=== PATIENT | female | born 1970 | race Caucasian/White ===

== ENCOUNTER 2018-06-30 08:04 | Day surgery (SDC) | payer OTHER ==
[2018-06-27 12:37] LABS: Absolute Lymphocytes (CBC) 2.4 K/uL (0.7-4.9); Absolute Monocytes 0.5 K/uL (0.1-1.3); Absolute Neutrophil 4.4 K/uL (1.8-8.0); Basophils % 0.5 % (0-1.3); Eosinophils % 2.4 % (0-4.4); Lymphocytes % 32.4 % (15.3-44.8); MCH 33.6 pg (27.0-35.0); MPV 7.2 fL (7.6-11.3); Monocytes % 6.1 % (3.3-12.3)
--- NOTE | 2018-06-27 12:38 | RAD REPORT ---
EXAM DESCRIPTION: RAD - Chest Pa And Lat (2 Views) - 06/27/2018 12:22 pm CLINICAL HISTORY: preop Chest pain. COMPARISON: No comparisons FINDINGS: The lungs are clear. The heart is normal in size. No displaced fractures. IMPRESSION: No acute or concerning finding suspected.
[2018-06-27 12:55] LABS: BUN Blood Urea Nitrogen 16 mg/dL (7-18); Bicarbonate 25 mmol/L (21-32); Glucose Level 87 mg/dL (74-106); Potassium 3.7 mmol/L (3.5-5.1); Sodium Level 141 mmol/L (136-145)
--- NOTE | 2018-06-27 14:26 | EKG ---
Test Date: 2018-06-27 Test Time: 12:27:45 Community Recreation Programmer: JAEL MEASUREMENT RESULTS: Intervals: Rate: 72 DE: 178 QRSD: 96 QT: 408 QTc: 446 Webb: P: 38 DE: 178 QRS: -5 T: -2 INTERPRETIVE STATEMENTS: Normal sinus rhythm Normal ECG No previous ECG available for comparison Electronically Signed On 06-27-18 14:25:46 CDT by Mario Melo
[2018-06-30 08:59] LABS: Specific Gravity 1.025 (1.005-1.030)
[2018-06-30] MEDS ORDERED: CEFAZOLIN/SWI 1gm 1 GM/10 ML SYR ONE (09:08)
[2018-06-30] MEDS ORDERED: Ringers Lactate 1,000 ML IV ONE ×2 (09:08→11:42)
[2018-06-30] MEDS ORDERED: MIDAZOLAM HCL 2 MG/2 ML INJ ONE (10:04)
[2018-06-30] MEDS ORDERED: ROCURONIUM 50 MG/5 ML VIAL IV ONE (10:35)
[2018-06-30] MEDS ORDERED: ONDANSETRON 4 MG/2 ML VIAL ONE (10:35)
[2018-06-30] MEDS ORDERED: PROPOFOL 200 MG/20 ML VIAL IV ONE (10:35)
[2018-06-30] MEDS ORDERED: FENTANYL CITR 100 MCG/2 ML ONE (10:35)
[2018-06-30] MEDS ORDERED: LIDOCAINE 1% MPF 2 ML AMPULE ONE (10:35)
[2018-06-30] MEDS ORDERED: DEXAMETHASONE 10 MG/ML VIAL ONE (10:35)
[2018-06-30] MEDS ORDERED: GLYCOPYRROLATE 0.2 MG/ML SYR ONE (11:11)
[2018-06-30] MEDS ORDERED: NEOSTIGMINE 1 MG/ML -5 ML SYRINGE ONE (11:11)
[2018-06-30] MEDS: MEPERIDINE HCL 50 MG/ML AMP ONE ×4 (11:20→11:42)
--- NOTE | 2018-06-30 11:27 | P.BOP ---
Preoperative diagnosis: RLQ abd pain, Postoperative diagnosis: Appendicitis, right ovarian cyst, redundant transverse colon Primary procedure: Diagnostic laparoscopy, Laparoscopic appendectomy Executive Advisor: Fidelina Rogers (CONTACT LENS BLOCKER AND CUTTER) Estimated blood loss: <10cc Specimen: rosa Findings: see dictaction Anesthesia: General Complications: None Transferred to: Recovery Room Condition: Good
[2018-06-30] MEDS ORDERED: CODEINE 30MG/APAP 300MG TAB ONE (12:59)
[2018-07-01 14:29] VITALS: BP 135/77; TEMP 97.3; O2SAT 97
--- NOTE | 2018-07-01 23:04 | OP ---
Date of Procedure: 07/01/2018 Surgeon: Gabino Castanon MD Steam Locomotive Firer/Fireman: JULIANA Barragan. Preoperative Diagnosis: Right lower quadrant pain. Postoperative Diagnoses: Right lower quadrant pain with appendicitis, right ovarian cyst, redundant transverse colon. Procedure: Diagnostic laparoscopy, laparoscopic appendectomy. Specimen: Appendix. Findings: Patient has redundant transverse colon that goes all the way down to pelvis, goes adjacent and over the ascending colon, goes into the hepatic flexure, and goes back into the ascending colon with the ascending colon and appendix seems to be in the right place. That probably may give impress ion of the cecum moving to the middle since the part of the transverse colon overlapped the mirror im age anteriorly with the ascending colon. The appendix looks dilated, asymmetrical in shape and color , and for that reason diagnosed with appendicitis and appendix was removed. Indications: This is a 47-year-old patient, who comes to us with abdominal pain on and off in right lower quadrant, etiology of that is unknown. Some CAT scan findings were discussed with a GI doctor and the patient that it triggers a diagnostic laparoscopy and possible appendectomy with benefits, al ternatives, and risks which include but are not limited to infection, bleeding, damage to adjacent st ructures, anesthesia complication, recurrence, KS, and even . She also understands this may not relieve any symptoms, this might need more than one surgical intervention, this is a diagnostic proc edure, we might not find the etiology of her pain. She signed a consent. 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 Description Of Procedure: The patient was brought to the operating room, placed in supine position. Anesthesia was done without complication. Abdominal area was prepped and draped in usual sterile fa shion. Marcaine 0.5% injected for local anesthetic, followed by sharp incision of the skin in the in fraumbilical region. Incision was carried down to the fascia which was opened. Under direct vision, Vicryl #1 was placed over the fascia. Mike trocar was carefully introduced. No bleeding was obta ined. I placed two more trocars, 5 mm each one of them, in the left lower quadrant and suprapubic ar ea under direct visualization. Then, we proceeded to do the diagnostic laparoscopy. Curiously, we n oticed the findings that we discussed above within transverse colon and this is how it goes. The pat ient has appendix right in the right place which is in the right lower quadrant, right near the later al wall of the abdomen. The ascending colon gums up along the edge of the flank, going to the hepati c flexure, but then transverse colon loops and comes down all the way down on top of the ascending co freddy. It goes all the way down to pelvis, curves back into the mid transverse area, and then actually go into the splenic flexure and then descending colon, looks okay. A little bit redundant sigmoid b ut none is defined as the transverse colon. That gave the appearance of a cecum to be on the middle with the cecum really is on the right side. Appendix looks asymmetrical in shape and color. I canno t tell it is not abnormal as it looks abnormal on the visualization; for that reason, this will be re moved. In the area of the liver, gallbladder, and stomach, we did not see any major abnormalities in that region. The area of the pelvis shows an ovarian cyst translucent on the right side, no leakage . No hernia is seen and small bowel with no obvious abnormalities there. At that moment, I proceede d to create a window in the base of the appendix, transected that with an Endo XIOMARA 45 mm 3.5 and the mesoappendix with an Endo XIOMARA 45 mm 2.5 with further hemostasis obtained clear. The area was irrigat ed. No bleeding. No bowel leak. Appendix removed from the abdominal cavity using an EndoCatch thro ugh the umbilical incision. The area was inspected once again. The bowel was not twisted, looks to be nicely in place. I am going to discuss this with the patient when she wakes up and see what other alternative that we have. The trocars were removed under direct vision. Deflated pneumoperitoneum. Closed the fascia with #1 Vicryl. Irrigated the subcutaneous tissue, closed the skin with 3-0 Client Support Administrator elton and Steri-Strips placed on top. The patient tolerated the procedure well. The patient was sent to recovery room in stable condition. The was explained the options that we have right now. We may have to address the issue of a redundant transverse colon since it is impossible for me at th is moment to say that it will not kink in the future. That will be discussed when the patient is awake since any surgical intervention to get that may require allison sheets. She understood that. /MELISSA Voice ID: [id number] Report ID: [id number]
--- NOTE | 2018-07-01 23:09 | DS ---
Date of Discharge: 06/30/2018 Diagnoses: Right lower quadrant pain, appendicitis, right ovarian cyst, redundant transverse colon. Procedures: Diagnostic laparoscopy, laparoscopic appendectomy. Disposition: Home. Activity: As tolerated. No heavy lifting. Followup: Follow up in my office in 1 week. Call for appointment on [phone]. Discharge Instructions: Keep the area dry for 48 hours, then may shower. Keep the Steri-Strips inta ct. SAMEER/MELISSA Voice ID: [id number] Report ID: [id number]
== END 2018-06-30 13:44 | disposition home or self-care (01) ==
LOC: OR 08:04
PROVIDERS: ATTEND Surgery
PROC: 0DTJ4ZZ Resection of Appendix, Percutaneous Endoscopic Approach (ICD-10-PCS; principal; 2018-06-30 10:45)
DX: K37 Unspecified appendicitis (principal); N83.201 Unspecified ovarian cyst, right side; Q43.8 Other specified congenital malformations of intestine
CPT/HCPCS: 36415; 71046; 80048; 81025; 85025; 88304; 93005; J0690; J1100; J2001; J2175; J2250; J2405; J2710; J3010

== ENCOUNTER 2024-09-29 03:19 | Emergency (ER) | payer BC ==
[2024-09-29] MEDS ORDERED: ONDANSETRON 4 MG/2 ML VIAL ONE (03:51)
[2024-09-29] MEDS ORDERED: dilTIAZem HCL 25 MG/5 ML VIAL IV ONE (03:52)
[2024-09-29] MEDS ORDERED: NA CHLORIDE 0.9% 1,000 ML ONE ×2 (03:52→05:26)
[2024-09-29 04:13] LABS: Specific Gravity 1.026 (1.005-1.030); Sqamous Epithelial <5 /HPF (None Seen); Urine Bacteria None Seen /HPF (<20); Urine Bilirubin NEGATIVE (Negative); Urine Blood Negative (Negative); Urine Clarity Turbid (Clear); Urine Color Light-Yellow (Yellow); Urine Culture Reflex Order NOT NEEDED; Urine Glucose NEGATIVE (Negative); Urine Ketones NEGATIVE (Negative); Urine Micro Reflex YN NO BILL MICROSCOPIC; Urine Mucus Slight /HPF (None Seen); Urine Nitrite NEGATIVE (Negative); Urine Protein TRACE (Negative); Urine RBC <5 /HPF (None Seen); Urine Urobilinogen Normal (Normal); Urine WBC <5 /HPF (<5); Urine pH 8.5 (5.0-7.0)
[2024-09-29 04:15] LABS: Albumin 4.2 g/dL (3.4-5.0); Albumin/Globulin Ratio 1.1 (1.1-1.8); Anion Gap 10.2 mEq/L (5.0-15.0); Bilirubin Direct 0.2 mg/dL (0-0.2); Bilirubin Indirect, Calculated 0.7 mg/dL (0.2-0.8); Bilirubin Total 0.9 mg/dL (0.2-1.0); Globulin 3.8 g/dL (2.3-3.5); Potassium 3.2 mEq/L (3.5-5.1); Thyroid Stimulating Hormone 0.092 uIU/mL (0.358-3.740); Troponin High Sensitivity 3.9 pg/mL (<58.9)
[2024-09-29 04:16] LABS: Absolute Eosinophils 0.1 K/uL (0-0.5); Absolute Monocytes 0.6 K/uL (0.1-1.3); Absolute Neutrophil 7.6 K/uL (1.8-8.0); Basophils % 0.2 % (0-1.3); Eosinophils % 1.5 % (0-4.4); Hematocrit 42.9 % (36.0-45.0); Lymphocytes % 10.7 % (15.3-44.8); MCH 31.4 pg (27.0-35.0); MCHC 35.1 g/dL (32.0-36.0); MCV 89.6 fL (80-100); Monocytes % 6.3 % (3.3-12.3); Neutrophils % 81.3 % (41.7-73.7); Platelets 253 thou/uL (152-406); RBC Red Blood Cell Count 4.79 M/uL (3.86-4.86); Red Cell Distribution Width 13.1 % (12.1-15.2)
[2024-09-29 04:26] LABS: SARS-CoV-2 Antigen CONTROL BLUE LINE VIS/BG OK; SARS-CoV-2 Antigen Rapid Res Negative (Negative)
[2024-09-29] MEDS ORDERED: POTASSIUM CL SA 10 MEQ TAB PO ONE (04:37)
[2024-09-29] MEDS ORDERED: KCL 20 MEQ/100 mL IVPB 100 ML IV ONE (04:38)
[2024-09-29] MEDS ORDERED: NA CHLORIDE 0.9% 250 ML ONE (04:38)
[2024-09-29] MEDS ORDERED: MAGNESIUM SULFATE 1 gm IVPB 2 GM/200 ML BAG IV ONE (04:39)
--- NOTE | 2024-09-29 06:31 | RAD REPORT ---
EXAM DESCRIPTION: Chest Single View CLINICAL HISTORY: COUGH COMPARISON: None TECHNIQUE: Single AP view of the chest. FINDINGS: Lung volumes adequate. Cardiac silhouette is normal in size. No pneumothorax. No large pleural effusion. No focal consolidation. No acute bony finding. IMPRESSION: No evidence of acute cardiopulmonary disease. Electronically signed by: Adriano Paredes MD 09/29/2024 06:26 AM TICKET ATTENDANT Z9 Due to temporary technical issues with the PACS/Lumoid reporting system, reports are being janae d by the in-house radiologist without review as a courtesy to ensure prompt reporting the interpreting radiologist is fully responsible for the content of the report. Transcribed Date/Time: 09/29/2024 6:31 AM
--- NOTE | 2024-09-29 06:56 | EDPHYS ---
Physician Documentation [facility] Name: Michelle Marquez Age: 54 yrs Sex: Female : 1970 Arrival Date: 09/29/2024 Time: 03:19 Bed 3 Private MD: ED Physician Tee Nelson HPI: 09/29 03:35 This 54 yrs old Female presents to ER via Unassigned with complaints of ec2 Nausea/Vomiting/Diarrhea, Palpitations. 03:35 Patient arrives today for evaluation of nausea and vomiting as well as palpitations. ec2 States that she has been having some bouts of nausea and vomiting along with diarrhea. Patient reports that she noted that her watch told her that she is in atrial fibrillation and wanted to be evaluated. Reports no chest pain or shortness of breath. History of thyroid cancer status post thyroidectomy and is on thyroid supplementation.. Historical: - Allergies: 03:37 No Known Allergies; ha1 - PMHx: 03:37 Hypertensive disorder; thyroid cancer; ha1 - PSHx: 03:37 Thyroidectomy; Appendectomy; ha1 - Immunization history:: Adult Immunizations up to date, Client reports receiving the 2nd dose of the Covid vaccine, Last tetanus immunization: < 10 years ago Flu vaccine is up to date. - Infectious Disease History:: Denies. - Social history:: Smoking status: Patient denies any tobacco usage or history of. ROS: 03:35 Constitutional: as per hpi ec2 Exam: 03:35 Constitutional: GEN: NAD Head: atraumatic Eyes: EOMI Ears: External ears are ec2 normal. CV: tachycardia, irregular rhythm LUNGS: no respiratory distress ABD: non-distended, soft, nontender, not guarding, not rigid SKIN: no evidence of rashes MSK: no evidence of trauma Vital Signs: 03:25 BP 160 / 95; Pulse 119; Resp 20 S; Temp 98.6; Pulse Ox 100% on R/A; Weight 94.35 kg; ha1 Height 5 ft. 9 in. ; 04:09 BP 140 / 98; Pulse 85; Resp 17 S; Pulse Ox 99% on R/A; Pain 0/10; br2 04:48 BP 140 / 98; Pulse 78; Resp 18; Pulse Ox 100% on R/A; br2 06:35 BP 138 / 88; Pulse 77; Resp 17; Pulse Ox 99% ; br2 07:10 BP 142 / 93; Pulse 66; Resp 16; Pulse Ox 99% on R/A; db 03:25 Body Mass Index 30.72 (94.35 kg, 175.26 cm) ha1 04:09 Pain Scale: Adult br2 MDM: 03:27 Medical Screening Exam initiated ec2 03:35 Data reviewed: vital signs, nurses notes. ED course: Patient arrives today for ec2 evaluation of nausea and vomiting along with palpitation. Examination yields irregular rhythm with tachycardia. EKG obtained, independently reviewed and interpreted by me, shows atrial fibrillation with a rate of 123, no acute ST segment elevations, intervals are nonactionable. Will obtain lab work, treat the patient's symptoms. Differential includes electrolyte disturbances, anemia, dehydration, arrhythmia. 04:28 ED course: Metabolic profile shows slight hypokalemia with potassium of 3.2. TSH ec2 appropriately low. Urine is noninfectious appearing. LFTs unremarkable. Free T4 within appropriate ranges. Troponin within normal ranges. Flu testing negative. Will supplement potassium given the patient's A-fib.. 04:53 ED course: Repeat EKG independently reviewed and interpreted by me, shows atrial ec2 fibrillation, rate of 83, no acute ST segment elevations, intervals are nonactionable.. 05:31 ED course: On reassessment patient remains in A-fib with heart rates in the 80s and ec2 90s. I discussed possible anticoagulation with the patient given the patient's [id number] score of 2, patient declined, we will instead start the patient on full dose of aspirin and she will follow-up with cardiology and Dr. Smith for further management of her A-fib. Patient expressed understanding regarding the risks and benefits regarding anticoagulation.. 06:01 ED course: Chest x-ray independently reviewed and interpreted by me, shows no acute ec2 intrathoracic process.. 06:20 ED course: Slowed down in the potassium given irritation during infusion. Ultimately I ec2 feel patient is a appropriate candidate for discharge with close follow-up with PCP and cardiology. Patient is otherwise young individual, I have a low suspicion for process such as PE or UT. Patient is rate controlled. Patient is otherwise well-managed on her blood pressure. Patient is an appropriate candidate to follow-up outpatient.. 09/29 03:35 Order name: Basic Metabolic Panel; Complete Time: 04:27 09/29 03:35 Order name: CBC with Diff 09/29 03:35 Order name: Troponin HS; Complete Time: 04:27 09/29 03:35 Order name: TSH; Complete Time: 04:27 09/29 03:35 Order name: T4 Free; Complete Time: 04:27 09/29 03:35 Order name: Lipase; Complete Time: 04:27 09/29 03:35 Order name: Influenza Screen (a \T\ B); Complete Time: 04:27 09/29 03:35 Order name: SARS RAPID; Complete Time: 06:35 09/29 03:35 Order name: UAM; Complete Time: 04:27 09/29 03:35 Order name: LFT's; Complete Time: 04:27 09/29 03:35 Order name: XRAY Chest (1 view) 2 09/29 03:35 Order name: Cardiac monitoring; Complete Time: 04:03 09/29 03:35 Order name: EKG - Nurse/Tech; Complete Time: 04:03 09/29 03:35 Order name: IV Saline Lock; Complete Time: 04:03 09/29 03:35 Order name: Labs collected and sent; Complete Time: 04:03 09/29 03:35 Order name: O2 Per Protocol; Complete Time: 04:03 09/29 03:35 Order name: O2 Sat Monitoring; Complete Time: 04:03 09/29 04:15 Order name: EKG - Nurse/Tech; Complete Time: 04:46 ec2 Administered Medications: 04:03 Drug: NS 0.9% IV 1000 ml IV at 1000 ml once; to be given as a bolus over 60 minutes br2 Route: IV; Rate: 1000 ml; Site: right antecubital; 05:00 Follow up: Response: No adverse reaction; IV Status: Completed infusion; IV Intake: br2 1000ml 04:03 Drug: Ondansetron IVP 4 mg IVP once; over 2 minutes Route: IVP; Site: right antecubital;br2 04:30 Follow up: Response: No adverse reaction br2 04:03 Drug: Diltiazem IVP 10 mg IVP once; Over 2 minutes Route: IVP; Site: right antecubital; br2 04:30 Follow up: Response: No adverse reaction br2 04:46 Drug: NS 0.9% IV 250 ml IV at bolus once; to be given as a bolus over 30 minutes Route: jj7 IV; Rate: bolus; Site: right antecubital; 05:15 Follow up: Response: No adverse reaction; IV Status: Completed infusion; IV Intake: br2 250ml 04:47 Drug: Magnesium Sulfate IVPB 2 grams IVPB once over 30 mins Route: IVPB; Infused Over: jj7 30 mins; Site: right antecubital; 05:21 Follow up: Response: No adverse reaction; IV Status: Completed infusion; IV Intake: br2 200ml 04:47 Drug: Potassium Chloride PO 40 mEq PO once Route: PO; br2 05:30 Follow up: Response: No adverse reaction br2 05:21 Drug: Potassium Chloride IV 20 mEq IV at calculated rate once; administer over 1-2 br2 hours Route: IV; Rate: calculated rate; Site: right antecubital; 07:15 Follow up: Response: No adverse reaction; IV Status: Completed infusion; IV Intake: db 100ml 06:19 Drug: NS 0.9% IV 1000 ml IV at 125 ml/hr Per protocol Route: IV; Rate: 500 ml/hr; Site: br2 right antecubital; 07:16 Follow up: Response: No adverse reaction; IV Status: Completed infusion db Disposition Summary: 09/29/24 06:56 Discharge Ordered Condition: Stable ec2 Diagnosis - Persistent atrial fibrillation ec2 - Hypokalemia ec2 Followup: ec2 - With: Bruno Rincon MD - When: - Reason: Recheck today's complaints Followup: ec2 - With: Rodolfo Smith MD - When: - Reason: Recheck today's complaints Discharge Instructions: - Discharge Summary Sheet ec2 - Atrial Fibrillation ec2 Forms: - Medication Reconciliation Form ec2 - Antibiotic Education ec2 - Prescription Opioid Use ec2 - Patient Portal Instructions ec2 - Leadership Thank You Letter ec2 Prescriptions: - aspirin 325 mg Oral tablet - take 1 tablet ORAL route daily; 30 tablet; Refills: 0, Product Selection ec2 Permitted Critical care time excluding procedures: 05:32 Critical care time: Bedside Care: 30 minutes. Total time: 30 minutes ec2 Signatures: Dispatcher [employer] EDMS Isabelle Crowley, RN RN ha1 An June RN RN jj7 Tee Nelson MD MD ec2 Teresa Zaldivar RN RN br2 Mulu Hobson RN db Corrections: (The following items were deleted from the chart) 03:36 03:36 BASIC METABOLIC PANEL+C.LAB.BRZ ordered. EDMS EDMS 03:36 03:36 CBC+H.LAB.BRZ ordered. EDMS EDMS 03:36 03:36 Troponin High Sensitivity+C.LAB.BRZ ordered. EDMS EDMS 03:36 03:36 THYROID STIMULAT HORMONE+C.LAB.BRZ ordered. EDMS EDMS 03:36 03:36 T4 FREE+C.LAB.BRZ ordered. EDMS EDMS 03:36 03:36 LIPASE+C.LAB.BRZ ordered. EDMS EDMS 03:36 03:36 Influenza Screen (A \T\ B)+BA.LAB.BRZ ordered. EDMS EDMS 03:36 03:36 SARS-COV-2 Antigen Rapid+I.LAB.BRZ ordered. EDMS EDMS 03:36 03:36 Urinalysis W/Microscopic+U.LAB.BRZ ordered. EDMS EDMS 03:36 03:36 Chest Single View+RAD.RAD.BRZ ordered. EDMS EDMS 03:36 03:36 HEPATIC FUNCTION+C.LAB.BRZ ordered. EDMS EDMS
--- NOTE | 2024-09-29 06:56 | ER ---
Nurse's Notes [facility] Name: Michelle Marquez Age: 54 yrs Sex: Female : 1970 Arrival Date: 09/29/2024 Time: 03:19 Bed 3 Private MD: Diagnosis: Persistent atrial fibrillation;Hypokalemia Presentation: 09/29 03:25 Chief complaint: Patient states: nausea, vomiting, diarrhea, chest palpitations. atrial ha1 fibrillation reading at home. 03:25 Coronavirus screen: Vaccine status: Patient reports receiving the 2nd dose of the covid ha1 vaccine. Solavei and FlowJob. Ebola Screen: No symptoms or risks identified at this time. Initial Sepsis Screen: Does the patient meet any 2 criteria? No. Patient's initial sepsis screen is negative. Does the patient have a suspected source of infection? No. Patient's initial sepsis screen is negative. Risk Assessment: Do you want to hurt yourself or someone else? Patient reports no desire to harm self or others. Onset of symptoms was September 29, 2024. 03:25 Method Of Arrival: Ambulatory ha1 03:25 Acuity: LEATHA 2 ha1 Triage Assessment: 03:37 General: Appears uncomfortable, Behavior is cooperative. Pain: Complains of pain in ha1 chest palpitations. Neuro: Level of Consciousness is awake, alert, obeys commands, Oriented to person, place, time, situation. Cardiovascular: Capillary refill < 3 seconds Patient's skin is warm and dry. Cardiovascular: Reports fatigue, nausea, palpitations. Respiratory: Airway is patent Respiratory effort is even, unlabored, Respiratory pattern is regular, symmetrical. GI: Abdomen is round non-distended, Reports diarrhea, nausea, vomiting. Derm: Skin is pink, warm \T\ dry. Musculoskeletal: Circulation, motion, and sensation intact. Range of motion: intact in all extremities. Historical: - Allergies: 03:37 No Known Allergies; ha1 - PMHx: 03:37 Hypertensive disorder; thyroid cancer; ha1 - PSHx: 03:37 Thyroidectomy; Appendectomy; ha1 - Immunization history:: Adult Immunizations up to date, Client reports receiving the 2nd dose of the Covid vaccine, Last tetanus immunization: < 10 years ago Flu vaccine is up to date. - Infectious Disease History:: Denies. - Social history:: Smoking status: Patient denies any tobacco usage or history of. Screenin:41 [facility] ED Fall Risk Assessment (Adult) History of falling in the last 3 months, ha1 including since admission No falls in past 3 months (0 pts) Confusion or Disorientation No (0 pts) Intoxicated or Sedated No (0 pts) Impaired Gait No (0 pts) Mobility Assist Device Used No (0 pt) Altered Elimination No (0 pt) Score/Fall Risk Level 0 - 2 = Low Risk Oriented to surroundings, Maintained a safe environment, Educated pt \T\ family on fall prevention, incl call for assistance when getting out of bed, Hourly rounding (assess needs \T\ fall precautionary measures) done. Abuse screen: Denies threats or abuse. Denies injuries from another. Nutritional screening: No deficits noted. Tuberculosis screening: No symptoms or risk factors identified. Assessment: 03:30 Reassessment: Patient and/or family updated on plan of care and expected duration. Pain br2 level reassessed. Patient is alert, oriented x 3, equal unlabored respirations, skin warm/dry/pink. General: Appears in no apparent distress. uncomfortable, Behavior is calm, cooperative. Pain: Denies pain. Neuro: Benavidez Agitation-Sedation Scale (RASS): 0 - Alert and Calm Level of Consciousness is awake, alert, obeys commands, Oriented to person, place, time, situation. Cardiovascular: Reports nausea, palpitations, vomiting, Denies chest pain, Capillary refill < 3 seconds Rhythm is atrial fibrillation. Respiratory: Airway is patent Respiratory effort is even, unlabored, Respiratory pattern is regular, symmetrical. GI: Reports diarrhea, nausea, vomiting. GI: Reports. : No signs and/or symptoms were reported regarding the genitourinary system. EENT: No signs and/or symptoms were reported regarding the EENT system. 03:30 Derm: No signs and/or symptoms reported regarding the dermatologic system. br2 Musculoskeletal: Capillary refill < 3 seconds, Range of motion: intact in all extremities. 04:48 Reassessment: Patient and/or family updated on plan of care and expected duration. Pain br2 level reassessed. Patient is alert, oriented x 3, equal unlabored respirations, skin warm/dry/pink. Patient states feeling better. Patient states symptoms have improved. 05:19 Reassessment: Patient and/or family updated on plan of care and expected duration. Pain br2 level reassessed. Patient is alert, oriented x 3, equal unlabored respirations, skin warm/dry/pink. Patient states feeling better. Patient states symptoms have improved. 07:40 Reassessment: Patient appears in no apparent distress at this time. Patient and/or db family updated on plan of care and expected duration. Pain level reassessed. Patient is alert, oriented x 3, equal unlabored respirations, skin warm/dry/pink. GI: Abdomen is. Vital Signs: 03:25 BP 160 / 95; Pulse 119; Resp 20 S; Temp 98.6; Pulse Ox 100% on R/A; Weight 94.35 kg; ha1 Height 5 ft. 9 in. ; 04:09 BP 140 / 98; Pulse 85; Resp 17 S; Pulse Ox 99% on R/A; Pain 0/10; br2 04:48 BP 140 / 98; Pulse 78; Resp 18; Pulse Ox 100% on R/A; br2 06:35 BP 138 / 88; Pulse 77; Resp 17; Pulse Ox 99% ; br2 07:10 BP 142 / 93; Pulse 66; Resp 16; Pulse Ox 99% on R/A; db 03:25 Body Mass Index 30.72 (94.35 kg, 175.26 cm) ha1 04:09 Pain Scale: Adult br2 ED Course: 03:25 Patient arrived in ED. gm2 03:27 Tee Nelson MD is Attending Physician. ec2 03:27 Patient has correct armband on for positive identification. Placed in gown. Bed in low ha1 position. Call light in reach. Side rails up X 1. Adult w/ patient. 03:27 Provided Education on: plan of care . ha1 03:35 Inserted saline lock: 20 gauge in right antecubital area, using aseptic technique. br2 Blood collected. Flushed with 10 mL NS. 03:37 Triage completed. ha1 04:03 LFT's Sent. br2 04:03 SARS RAPID Sent. br2 04:03 Influenza Screen (a \T\ B) Sent. br2 04:03 Lipase Sent. br2 04:03 T4 Free Sent. br2 04:03 TSH Sent. br2 04:04 Teresa Zaldivar RN is Primary Nurse. br2 04:04 Basic Metabolic Panel Sent. br2 04:04 CBC with Diff Sent. br2 04:04 Troponin HS Sent. br2 06:24 XRAY Chest (1 view) In Process Unspecified. EDMS 06:56 Bruno Rincon MD is Referral Physician. ec2 06:56 Rodolfo Smith MD is Referral Physician. ec2 07:05 No provider procedures requiring assistance completed. db 07:05 Client placed on continuous cardiac and pulse oximetry monitoring. NIBP monitoring db applied. ekg monitor tech on. Pulse ox on. NIBP on. Pillow given. 07:35 IV discontinued, intact, bleeding controlled, No redness/swelling at site. db Administered Medications: 04:03 Drug: NS 0.9% IV 1000 ml IV at 1000 ml once; to be given as a bolus over 60 minutes br2 Route: IV; Rate: 1000 ml; Site: right antecubital; 05:00 Follow up: Response: No adverse reaction; IV Status: Completed infusion; IV Intake: br2 1000ml 04:03 Drug: Ondansetron IVP 4 mg IVP once; over 2 minutes Route: IVP; Site: right antecubital;br2 04:30 Follow up: Response: No adverse reaction br2 04:03 Drug: Diltiazem IVP 10 mg IVP once; Over 2 minutes Route: IVP; Site: right antecubital; br2 04:30 Follow up: Response: No adverse reaction br2 04:46 Drug: NS 0.9% IV 250 ml IV at bolus once; to be given as a bolus over 30 minutes Route: jj7 IV; Rate: bolus; Site: right antecubital; 05:15 Follow up: Response: No adverse reaction; IV Status: Completed infusion; IV Intake: br2 250ml 04:47 Drug: Magnesium Sulfate IVPB 2 grams IVPB once over 30 mins Route: IVPB; Infused Over: jj7 30 mins; Site: right antecubital; 05:21 Follow up: Response: No adverse reaction; IV Status: Completed infusion; IV Intake: br2 200ml 04:47 Drug: Potassium Chloride PO 40 mEq PO once Route: PO; br2 05:30 Follow up: Response: No adverse reaction br2 05:21 Drug: Potassium Chloride IV 20 mEq IV at calculated rate once; administer over 1-2 br2 hours Route: IV; Rate: calculated rate; Site: right antecubital; 07:15 Follow up: Response: No adverse reaction; IV Status: Completed infusion; IV Intake: db 100ml 06:19 Drug: NS 0.9% IV 1000 ml IV at 125 ml/hr Per protocol Route: IV; Rate: 500 ml/hr; Site: br2 right antecubital; 07:16 Follow up: Response: No adverse reaction; IV Status: Completed infusion db Medication: 03:44 VIS not applicable for this client. ha1 Intake: 05:00 IV: 1000ml; Total: 1000ml. br2 05:15 IV: 250ml; Total: 1250ml. br2 05:21 IV: 200ml; Total: 1450ml. br2 07:15 IV: 100ml; Total: 1550ml. db Outcome: 06:56 Discharge ordered by . ec2 07:35 Discharged to home ambulatory, db 07:35 Condition: stable 07:35 Discharge instructions given to patient, Instructed on discharge instructions, follow up and referral plans. Prescriptions given X 1, 07:41 Patient left the ED. db Signatures: Dispatcher [employer] Isabelle Savage RN RN ha1 An June RN RN jjMulu Juarez RN RN db Tee Nelson MD MD ec2 Roselyn Hughes Teresa Zaman RN RN br2
--- NOTE | 2024-10-01 12:00 | EKG ---
Test Date: 2024-09-29 Test Time: 04:50:44 Development Associate: CARLENE MEASUREMENT RESULTS: Intervals: Rate: 83 [place]: QRSD: 92 QT: 394 QTc: 462 [place]: P: WI: QRS: 2 T: 9 INTERPRETIVE STATEMENTS: Atrial fibrillation Prolonged QT Abnormal ECG Compared to ECG 09/29/2024 03:29:44 Prolonged QT interval now present Left-axis deviation no longer present ST (T wave) deviation no longer present Electronically Signed On 10-01-24 11:57:54 DIAMOND SANDER by Jeffery Quiñones
--- NOTE | 2024-10-01 12:00 | EKG ---
Test Date: 2024-09-29 Test Time: 03:29:44 [employer] Dispatcher: CARLENE MEASUREMENT RESULTS: Intervals: Rate: 123 [place]: QRSD: 88 QT: 338 QTc: 483 [place]: P: GA: QRS: -36 T: 60 INTERPRETIVE STATEMENTS: Atrial fibrillation Left axis deviation Nonspecific ST and T wave abnormality, probably digitalis effect Abnormal ECG Compared to ECG 06/27/2018 12:27:45 Left-axis deviation now present ST (T wave) deviation now present Sinus rhythm no longer present Electronically Signed On 10-01-24 11:58:24 LOW [employer] DEFENSE OFFICER by Jeffery Quiñones
[2024-10-02 01:07] VITALS: BP 142/93; TEMP 98.6; O2SAT 99
== END 2024-09-29 07:41 | disposition home or self-care (01) ==
LOC: ER 03:19
DX: I48.19 Other persistent atrial fibrillation (principal); E87.6 Hypokalemia; I10 Essential (primary) hypertension; Z11.52 Encounter for screening for COVID-19
CPT/HCPCS: 96365; 96367; 96361; 93005 ×2; 85025; 81001; 80048; 36415; 80076; 84443; 84484; 84439; 83690; 87804 ×2; 71045; 96375; 99285; 87811; J3480; J3475; J2405; J7050; J7030 ×2

== ENCOUNTER 2024-09-29 10:33 | Inpatient (IN) | payer BC ==
[2024-09-29] MEDS: SOTALOL HCL 80 MG TAB PO SCH (10:00)
--- NOTE | 2024-09-29 11:25 | ER ---
Nurse's Notes [facility] Name: Michelle Marquez Age: 54 yrs Sex: Female : 1970 Arrival Date: 09/29/2024 Time: 10:33 Bed [address] [facility] MD: Diagnosis: Nausea;Unspecified atrial fibrillation ED Course: 09/29 10:43 Patient arrived in ED. cm10 11:23 Rodolfo Smith MD is Hospitalizing Provider. bc6 12:31 Rodolfo Smith MD is Attending Physician. kc6 Administered Medications: No medications were administered Outcome: 11:24 Decision to Hospitalize by Provider. bc6 12:31 Patient left the ED. kc6 Signatures: Page Mcgovern RN RN kc6 Melly Levin bc6 Ashley Castanon RN RN cm10
[2024-09-29] MEDS ORDERED: LOPERAMIDE HCL 2 MG CAPSULE PO PRN (11:31)
[2024-09-29] MEDS ORDERED: DIPHENHYDRAMINE 25 MG TAB/CAP PO PRN (11:31)
[2024-09-29] MEDS ORDERED: SODIUM CHLORIDE 0.9% 10ML INJ IV PRN (11:31)
[2024-09-29] MEDS ORDERED: ONDANSETRON 4 MG (ODT) TAB PO PRN (11:31)
[2024-09-29] MEDS ORDERED: POLYETHYL GLY 3350 17 GM/DOSE PO PRN (11:31)
[2024-09-29] MEDS ORDERED: ACETAMINOPHEN 325 MG TABLET PO PRN (11:31)
[2024-09-29] MEDS ORDERED: SOTALOL HCL 80 MG TAB ONE (11:57)
[2024-09-29] MEDS ORDERED: APIXABAN 5 MG TABLET ONE (11:57)
[2024-09-29] MEDS ORDERED: NA CHLORIDE 0.9% 0 ML ONE (11:57)
[2024-09-29] MEDS: NACHLORIDE 0.45% 1,000 ML IV SCH (12:00)
[2024-09-29] MEDS ORDERED: NACHLORIDE 0.45% 1,000 ML IV ONE (12:17)
[2024-09-29 12:33] LABS: Absolute Lymphocytes (CBC) 0.5 K/uL (0.7-4.9); Absolute Monocytes 0.4 K/uL (0.1-1.3); Absolute Neutrophil 5.6 K/uL (1.8-8.0); Basophils % 0.2 % (0-1.3); Eosinophils % 0.3 % (0-4.4); Hematocrit 39.3 % (36.0-45.0); Hemoglobin 13.4 g/dL (12.0-15.0); Lymphocytes % 7.7 % (15.3-44.8); MCHC 34.2 g/dL (32.0-36.0); MCV 90.6 fL (80-100); MPV 6.7 fL (7.6-11.3); Monocytes % 5.6 % (3.3-12.3); Neutrophils % 86.2 % (41.7-73.7); Platelets 247 thou/uL (152-406); RBC Red Blood Cell Count 4.34 M/uL (3.86-4.86); Red Cell Distribution Width 13.1 % (12.1-15.2)
[2024-09-29 12:48] LABS: Anion Gap 5.9 mEq/L (5.0-15.0); Magnesium 2.3 mg/dL (1.6-2.4); Potassium 3.9 mEq/L (3.5-5.1)
[2024-09-29] MEDS: APIXABAN 5 MG TABLET PO SCH (20:44)
[2024-09-29] MEDS: PANTOPRAZOLE 40 MG INJ IVP SCH (20:45)
[2024-09-30 07:08] LABS: Absolute Eosinophils 0.1 K/uL (0-0.5); Absolute Monocytes 0.4 K/uL (0.1-1.3); Absolute Neutrophil 1.5 K/uL (1.8-8.0); Basophils % 0.4 % (0-1.3); Eosinophils % 3.4 % (0-4.4); Hematocrit 38.6 % (36.0-45.0); Hemoglobin 13.4 g/dL (12.0-15.0); Lymphocytes % 33.9 % (15.3-44.8); MCH 31.3 pg (27.0-35.0); MCHC 34.8 g/dL (32.0-36.0); MCV 90.1 fL (80-100); MPV 6.6 fL (7.6-11.3); Monocytes % 13.2 % (3.3-12.3); Neutrophils % 49.1 % (41.7-73.7); Nucleated Red Blood Cells % 0.1 % (0-0); Platelets 203 thou/uL (152-406); RBC Red Blood Cell Count 4.28 M/uL (3.86-4.86); Red Cell Distribution Width 12.6 % (12.1-15.2)
[2024-09-30] MEDS: LEVOTHYROXINE SOD 0.025 MG TAB PO SCH (08:11)
[2024-09-30] MEDS: THYROID 30 MG TAB PO SCH (08:11)
[2024-09-30] MEDS ORDERED: PANTOPRAZOLE 40MG TABLET PO SCH (09:00)
--- NOTE | 2024-09-30 12:32 | P.DS ---
Admission Date: 09/29/24 Discharge Date: 09/30/24 Disposition: ROUTINE DISCHARGE Discharge Condition: FAIR Brief History of Present Illness: SHE DID GREAT WITH SOTALOL AND ELIUQIS FOR RAPID A FIB. 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 EKG IS NORMAL NOW WITH NO QT PROLONGATION. I WILL FU AND SHE WILL GOT DR. DEE. SHE HAS BEEN TO DR ZARAGOZA BUT DID NOT LIKE HIM. SHE HAS HAD THYROID CANCER THAT HAS BEEN REMOVED. SHE WILL HAVE TO SUPPRESS TSH LESS THAN 0.4. THIS WILL BE A RISK FACTOR FOR A FIB. Vital Signs/Physical Exam: Temp Pulse Resp BP Pulse Ox 97.8 F 70 16 121/68 98 09/30/24 04:00 09/30/24 04:00 09/30/24 04:00 09/30/24 04:00 09/30/24 04:00 Laboratory Data at Discharge: WBC 3.00 thou/uL (4.3-10.9) L 09/30/24 06:45 Hgb 13.4 g/dL (12.0-15.0) 09/30/24 06:45 Hct 38.6 % (36.0-45.0) 09/30/24 06:45 Plt Count 203 thou/uL (152-406) 09/30/24 06:45 Sodium 139 mEq/L (136-145) 09/30/24 06:45 Potassium 4.0 mEq/L (3.5-5.1) 09/30/24 06:45 BUN 14 mg/dL (7-18) 09/30/24 06:45 Creatinine 0.73 mg/dL (0.55-1.02) 09/30/24 06:45 Glucose 102 mg/dL (74-106) 09/30/24 06:45 Magnesium 2.0 mg/dL (1.6-2.4) 09/30/24 06:45 Home Medications: Omeprazole [Prilosec] 40 mg PO DAILY 06/27/18 Thyroid,Pork [[place] Thyroid] 90 mg PO DAILY 06/27/18 Levothyroxine Sodium 25 mcg PO DAILY 09/29/24 Apixaban [Eliquis] 5 mg PO BID #60 tablet 09/30/24 Sotalol HCl [Betapace*] 80 mg PO BID 6AM 6PM #60 tab 09/30/24 New Medications: Sotalol HCl [Betapace*] 80 mg PO BID 6AM 6PM #60 tab Apixaban [Eliquis] 5 mg PO BID #60 tablet Followup: Rodolfo Smith MD [Primary Care Provider] - 1-2 Weeks Jeffery Quiñones MD [ACTIVE - CAN ADMIT] - 1-2 Weeks
--- NOTE | 2024-10-01 11:57 | EKG ---
Test Date: 2024-09-29 Test Time: 11:59:01 Forestry Farm Laborer: CAITLYN MEASUREMENT RESULTS: Intervals: Rate: 90 SD: 198 QRSD: 86 QT: 350 QTc: 428 [place]: P: 77 SD: 198 QRS: -27 T: 35 INTERPRETIVE STATEMENTS: Normal sinus rhythm Normal ECG Compared to ECG 09/29/2024 04:50:44 Atrial fibrillation no longer present Prolonged QT interval no longer present Electronically Signed On 10-01-24 11:55:53 HANDY WORKER by Jeffery Quiñones
[2024-10-02 01:17] VITALS: BP 121/68; TEMP 97.8; BMI 30.7
[2024-10-02 01:20] VITALS: O2SAT 98
== END 2024-09-30 09:31 | disposition home or self-care (01) | DRG 310 ==
LOC: ER 10:33 → ERHOLD 11:05 → 4TH 12:09
PROVIDERS: ADMIT Internal Medicine; ATTEND Internal Medicine
DX: I48.91 Unspecified atrial fibrillation (principal); Z79.01 Long term (current) use of anticoagulants; Z79.890 Hormone replacement therapy; Z79.899 Other long term (current) drug therapy; Z85.850 Personal history of malignant neoplasm of thyroid
CPT/HCPCS: 36415; 80048; 83735; 85025; 93005; J2470; J7030